=== PATIENT | female | born 1975 | race African-American/Black ===

== ENCOUNTER 2023-06-13 21:06 | Inpatient (IN) | payer OTHER, SELFPAY ==
[~2023-06-13] VITALS: Ht 162.6 cm; Wt 131.5 kg
[2023-06-13 21:10] VITALS: O2SAT 99
[2023-06-13 22:29] LABS: BASOPHILS % 0.5 % (0.0-2.0); EOSINOPHILS % 0.6 % (0.0-5.0); HEMATOCRIT. 33.6 % (36.0-48.0); HEMOGLOBIN. 10.8 g/dL (12.0-16.0); LYMPHOCYTES % 20.5 % (20.0-50.0); MEAN CORPUSCULAR HEMOGLOBIN 28.2 pg (28.0-32.0); MEAN CORPUSCULAR HGB CONC 32.2 g/dL (31.0-37.0); MEAN CORPUSCULAR VOLUME 87.5 fL (81.0-99.0); MEAN PLATELET VOLUME 7.3 fl (7.4-10.4); NEUTROPHILS % 73.4 % (40.0-76.0); PLATELET 464 x1000/uL (130-400); RED BLOOD CELL COUNT 3.84 mill/uL (4.2-5.4); RED CELL DISTRIBUTION WIDTH 16.2 % (11.6-14.6); WHITE BLOOD COUNT 11.1 x1000/uL (4.5-11.0)
[2023-06-13 22:45] LABS: ACETAMINOPHEN < 2 ug/mL (10-30); ALANINE AMINOTRANSFERASE 20 IU/L (10-49); ALBUMIN 4.3 g/dL (3.2-4.8); ASPARTATE AMINOTRANSFERASE 20 IU/L (<34); BILIRUBIN TOTAL 0.3 mg/dL (0.1-1.0); CALCIUM 8.8 mg/dL (8.7-10.4); CARBON DIOXIDE 27 mEq/L (21-32); CHLORIDE 103 mEq/L (98-107); CREATININE 1.1 mg/dL (0.6-1.0); GLUCOSE 183 mg/dL (70-105); PROTEIN TOTAL 7.2 g/dL (6.0-8.3); SODIUM 138 mEq/L (136-145); UREA NITROGEN BLOOD 15 mg/dL (9-23)
[2023-06-13 22:58] LABS: POTASSIUM 2.8 mEq/L (3.5-5.1)
[2023-06-14] MEDS: POTASSIUM CHLORIDE 20MEQ TABLET SR PO ONE (01:01)
[2023-06-14] MEDS ORDERED: KCL 20MEQ/100ML PREMIX 200 ML IV ONE (05:35)
[2023-06-14] MEDS ORDERED: GUAIFENESIN 200MG/10ML SUGAR FREE UDC PO PRN (06:00)
[2023-06-14] MEDS ORDERED: MAGNESIUM/ALUMINUM HYDROXIDE/SIMETHICONE 30ML UDC PO PRN (06:00)
[2023-06-14] MEDS ORDERED: CLONIDINE 0.1MG TABLET PO PRN (06:00)
[2023-06-14] MEDS ORDERED: ONDANSETRON HCL 4MG/2ML INJ IV PRN (06:00)
[2023-06-14] MEDS ORDERED: DOCUSATE SODIUM 100MG CAPSULE PO PRN (06:00)
[2023-06-14] MEDS ORDERED: ACETAMINOPHEN 650MG SUPP PR PRN (06:00)
[2023-06-14] MEDS ORDERED: IPRATROPIUM/ALBUTEROL 0.5-3(2.5)MG/3ML NEB HHN PRN (06:00)
[2023-06-14] MEDS ORDERED: MVI, ADULT NO.1 10 ML, FOLIC ACID 1 MG, THIAMINE HCL 100 MG in SODIUM CHLORIDE 0.9% 1,0... IV NR (07:00)
[2023-06-14 08:00] VITALS: BP 121/63; PULSE 85; RESP 18; TEMP 97.7
[2023-06-14] MEDS: KCL 20MEQ/100ML PREMIX 100 ML IV SCH (08:32)
[2023-06-14 08:38] VITALS: BP 121/63; PULSE 85; RESP 18; TEMP 97.7
[2023-06-14 08:59] VITALS: BP 121/63; PULSE 85; RESP 18; TEMP 97.7
[2023-06-14] MEDS ORDERED: CETI10TA11 PO (09:49)
[2023-06-14] MEDS ORDERED: GABA-529 PO (09:49)
[2023-06-14] MEDS ORDERED: BENZ100C86 PO (09:49)
[2023-06-14] MEDS ORDERED: FLUT9.9S BOTHNSTRLS (09:49)
[2023-06-14] MEDS ORDERED: GABA-532 PO (09:50)
[2023-06-14] MEDS ORDERED: MELO-106 PO (09:50)
[2023-06-14 10:27] LABS: CARBON DIOXIDE 24 mEq/L (21-32); CHLORIDE 104 mEq/L (98-107); POTASSIUM 3.7 mEq/L (3.5-5.1); SODIUM 137 mEq/L (136-145)
[2023-06-14 10:28] LABS: ALBUMIN 4.3 g/dL (3.2-4.8); CALCIUM 9.2 mg/dL (8.7-10.4); CREATININE 0.8 mg/dL (0.6-1.0); GLUCOSE 100 mg/dL (70-105)
[2023-06-14 10:29] LABS: ALANINE AMINOTRANSFERASE 18 IU/L (10-49); ASPARTATE AMINOTRANSFERASE 19 IU/L (<34); BILIRUBIN TOTAL 0.4 mg/dL (0.1-1.0); TROPONIN I HIGH SENSITIVITY < 4 ng/L (3.0-34)
[2023-06-14 10:30] LABS: CHOLESTEROL 203 mg/dL (<200); HDL CHOLESTEROL 53 mg/dL (>65); IRON 37 ug/dL (50-170); LDL CHOLESTEROL 143 mg/dL (5-100); THYROID STIMULATING HORMONE 0.28 uIU/mL (0.55-4.78)
[2023-06-14 10:31] LABS: FOLIC ACID (FOLATE) SERUM 10.25 ng/mL (>5.38); VITAMIN B12 SERUM 611 pg/mL (211-911)
[2023-06-14 11:03] LABS: BASOPHILS % 0.3 % (0.0-2.0); EOSINOPHILS % 0.2 % (0.0-5.0); HEMATOCRIT. 34.5 % (36.0-48.0); HEMOGLOBIN. 11.1 g/dL (12.0-16.0); LYMPHOCYTES % 18.4 % (20.0-50.0); MEAN CORPUSCULAR HEMOGLOBIN 28.9 pg (28.0-32.0); MEAN CORPUSCULAR HGB CONC 32.1 g/dL (31.0-37.0); MEAN CORPUSCULAR VOLUME 89.9 fL (81.0-99.0); MEAN PLATELET VOLUME 7.5 fl (7.4-10.4); MONOCYTES % 5.8 % (2.0-8.0); NEUTROPHILS % 75.3 % (40.0-76.0); PLATELET 403 x1000/uL (130-400); RED BLOOD CELL COUNT 3.84 mill/uL (4.2-5.4); RED CELL DISTRIBUTION WIDTH 16.5 % (11.6-14.6); WHITE BLOOD COUNT 8.6 x1000/uL (4.5-11.0)
[2023-06-14 11:25] LABS: PROTEIN TOTAL 7.1 g/dL (6.0-8.3); TOTAL IRON BINDING CAPACITY 386 ug/dl (250-425); TRIGLYCERIDE 93 mg/dL (0-150); UREA NITROGEN BLOOD 15 mg/dL (9-23)
[2023-06-14 11:50] LABS: T4 FREE 1.34 ng/dL (0.89-1.76); THYROID STIMULATING HORMONE 0.23 uIU/mL (0.55-4.78)
[2023-06-14 14:45] VITALS: BP 102/79; PULSE 70; TEMP 97.9
[2023-06-14 15:42] LABS: CLARITY URINE CLOUDY (CLEAR); COLOR URINE DARK YELLOW (YELLOW); GLUCOSE URINE NEGATIVE (NEGATIVE); KETONES URINE NEGATIVE (NEGATIVE); LEUKOCYTE ESTERASE URINE 1+ (NEGATIVE); NITRITE URINE NEGATIVE (NEGATIVE); OCCULT BLOOD URINE NEGATIVE (NEGATIVE); PROTEIN URINE 1+ (NEGATIVE); SPECIFIC GRAVITY URINE 1.036 (1.005-1.030)
[2023-06-14 15:52] LABS: *AMPHETAMINES SCREEN URINE NEGATIVE (NEGATIVE); *BARBITURATES SCREEN URINE NEGATIVE (NEGATIVE); *BENZODIAZEPINES SCREEN URINE NEGATIVE (NEGATIVE); *COCAINE SCREEN URINE NEGATIVE (NEGATIVE); CANNABINOID URINE SCREEN PRESUMPTIVE POSITIVE (NEGATIVE); ECSTASY MDMA SCREEN URINE NEGATIVE (NEGATIVE); METHADONE URINE SCREEN Neg (NEGATIVE); OPIATES URINE SCREEN NEGATIVE (NEGATIVE); PHENCYCLIDINE URINE SCREEN NEGATIVE (NEGATIVE)
[2023-06-14 16:30] LABS: BACTERIA URINE 4+; SQUAMOUS EPITHELIAL CELL URINE 3+ /lpf (RARE/1+); WBC URINE 15-25 /hpf (0-2)
[2023-06-14] MEDS ORDERED: FAMOTIDINE 20MG TABLET PO SCH (21:00)
== END 2023-06-14 15:00 | disposition home or self-care (01) | DRG 918 ==
LOC: ER 21:06 → 8WST 06-14 01:20
PROVIDERS: ADMIT Hospitalist; ATTEND Hospitalist
DX: T40.711A Poisoning by cannabis, accidental (unintentional), initial encounter (principal); N17.9 Acute kidney failure, unspecified; E87.6 Hypokalemia; D64.9 Anemia, unspecified; D72.829 Elevated white blood cell count, unspecified; R73.9 Hyperglycemia, unspecified; Y92.89 Other specified places as the place of occurrence of the external cause; Z79.899 Other long term (current) drug therapy
CPT/HCPCS: 36415; 71045; 80053; 80061; 80305; 80307; 80320; 80329; 81003; 82607; 82728; 82746; 83036; 83540; 83550; 83735; 84145; 84439; 84443; 84484; 85025; 99285; J3411; J3480; J3490; J7030